=== PATIENT | male | born 1945 | race Caucasian/White ===

== ENCOUNTER → 2019-04-12 | Outpatient (CLI) | payer MEDICARE, OTHER ==
[~2019-04-12] MED LIST: AMOXICILLIN 8751 TAB PO; ASPIRIN 81M81 MG/TA2 PO; COZAAR 25MG25 MG/TAB PO; FLOMAX 0.40.4 MG/CAP PO; FOSAMAX 70MG TA70 MG PO; LEVAQUIN 750MG750 M1 PO; LIPITOR 40MG TA40 MG PO; NORCO 325 MG-51 TAB PO; PHENERGAN W/CO120 M1 PO; PRIL40 PO; PRINIVIL10 MG PO; ZOFRAN 4MG T4 MG/TAB PO
== END ==
LOC: COL.RAD 09:27
DX: K21.9 Gastro-esophageal reflux disease without esophagitis (principal); M54.5 Low back pain; R14.2 Eructation; R14.1 Gas pain; G89.29 Other chronic pain

== ENCOUNTER → 2019-04-26 | Outpatient (CLI) | payer MEDICARE | LOC: COL.RAD 09:51 | DX: R68.81 Early satiety (principal); R14.3 Flatulence | CPT/HCPCS: A9537 ==